=== PATIENT | female | born 1990 | race Caucasian/White ===

== ENCOUNTER 2018-06-30 14:28 | Inpatient (IN) | payer OTHER ==
[2018-06-30 16:01] VITALS: BMI 33.6
--- NOTE | 2018-06-30 17:31 | HP ---
COWS - Scale Resting Pulse: 0= [place] 80 or Below Sweatin= Chills/Flushing Restless Observation: 5= Unable to Sit Still Pupil Size: 0= Normal to Room Light Bone or Joint Aches: 4=Acute Joint/Muscle Pain Runny Nose/ Eye Tearin= Nasal Congestion GI Upset > 30mins: 2= Nausea/Diarrhea Tremor Observation: 2= Slight Tremor Visible Yawning Observation: 0= None Anxiety or Irritability: 2=Irritable/Anxious Goose Flesh Skin: 0=Smooth Skin COWS Score: 17 CIWA Score - Admission Criteria OASAS Guidelines: Admission for Medically Managed Detox: Requires at least one of the followin. CIWA greater than 12 2. Seizures within the past 24 hours 3. Delirium tremens within the past 24 hours 4. Hallucinations within the past 24 hours 5. Acute intervention needed for co occurring medical disorder 6. Acute intervention needed for co occurring psychiatric disorder 7. Severe withdrawal that cannot be handled at a lower level of care (continued vomiting, continued diarrhea, abnormal vital signs) requiring intravenous medication and/or fluids 8. Admission ROS [facility] Chief Complaint: c/o withdrawal sx's. seeking detox from heroin Allergies/Adverse Reactions: Allergies Allergy/AdvReac Type Severity Reaction Status Date / Time No Known Allergies Allergy Verified 06/30/18 17:31 History of Present Illness: 27 Y.O. FEMALE WITH HX/O POLYSUBSTANCE ABUSE HERE FOR HEROIN DETOX. SHE WAS REFERRED BY A FRIEND. THIS IS HER FIRST VISIT HERE. C/O WITHDRAWAL SX'S. COWS 17. REPORTS HX/O DETOX AND RESIDENTIAL TXMENT. LAST BEING AT [facility] IN 2011. REPORTS LONGEST CLEAN TIME 3 YEARS. REPORT MOST RECENT CLEAN TIME 6 ONTHS THIS PAST YEAR. REPORTS HX/O DRUG OVERDOSE A "FEW TIMES". REPORTS HX/O SUICIDAL ATTEMPTS AND IDEATIONS, PRESENTLY DENIES. HX/O SEIZURES WHEN WITHDRAWING FROM BENZO'S WHICH SHE DENIES USE NOW. INTERMITTENT AVH ALSO REPORTED BUT PRESENTLY DENIES. SHE REPORTS SHE IS HOMELESS/. PMHX- DENIES PSYCH- DENIES MEDS- DENIES Exam Limitations: No Limitations - Ebola screening Have you traveled outside of the country in the last 21 days: No Have you had contact with anyone from an Ebola affected area: No Have you been sick,other than usual withdrawal symptoms: No Do you have a fever: No - Review of Systems Constitutional: Chills, Loss of Appetite, Malaise, Night Sweats, Changes in sleep EENT: reports: Nose Congestion, Other (DRY ITCHY EYES) Respiratory: reports: No Symptoms reported Cardiac: reports: No Symptoms Reported GI: reports: Nausea, Poor Appetite, Poor Fluid Intake : reports: No Symptoms Reported Musculoskeletal: reports: Back Pain Integumentary: reports: No Symptoms Reported Neuro: reports: Seizure (WHEN WITHDRAWAING FROM BENZO'S) Endocrine: reports: No Symptoms Reported Hematology: reports: No Symptoms Reported Psychiatric: reports: Depressed Other Systems: Reviewed and Negative Patient History - Patient Medical History Hx Anemia: Yes Hx Asthma: No Hx Chronic Obstructive Pulmonary Disease (COPD): No Hx Cancer: No Hx Cardiac Disorders: No Hx Congestive Heart Failure: No Hx Hypertension: No Hx Hypercholesterolemia: No Hx Pacemaker: No HX Cerebrovascular Accident: No Hx Seizures: Yes Hx Dementia: No Hx Diabetes: No Hx Gastrointestinal Disorders: No Hx Liver Disease: No Hx Genitourinary Disorders: No Hx Sexually Transmitted Disorders: No Hx Renal Disease (ESRD): No Hx Thyroid Disease: No Hx Human Immunodeficiency Virus (HIV): No Hx Hepatitis C: No Hx Depression: Yes Hx Suicide Attempt: Yes (summer/ THROW SELF INFORNT OF A ) Hx Bipolar Disorder: No Hx Schizophrenia: No - Patient Surgical History Past Surgical History: Yes Hx Section: Yes Anesthesia Reaction: No - PPD History Previous Implant?: Yes Documented Results: Negative w/o proof Implanted On Prior R Admission?: No PPD to be Administered?: Yes - Reproductive History Patient is a Female of Child Bearing Age (11 -55 yrs old): Yes Last Menstrual Period: 05/13/18 LMP comment: IRREG MENSES Patient : No ([facility] [place] - Smoking Cessation Smoking history: Current every day smoker Have you smoked in the past 12 months: Yes Aproximately how many cigarettes per day: 20 Cigars Per Day: 0 Hx Chewing Tobacco Use: No Initiated information on smoking cessation: Yes 'Breaking Loose' booklet given: 06/30/18 - Substance & Tx. History Hx Alcohol Use: No Hx Substance Use: Yes Substance Use Type: Cocaine, Heroin, Marijuana Hx Substance Use Treatment: Yes ([facility]) - Substances Abused HEROIN Route: Inhalation Frequency: Daily Amount used: 10 BAGS Age of first use: 24 Date of Last Use: 06/30/18 THC Route: Smoking Frequency: Daily Amount used: 5 BLUNTS Age of first use: 19 Date of Last Use: 06/30/18 COCAINE Route: Inhalation Frequency: Daily Amount used: $40 Age of first use: 21 Date of Last Use: 06/30/18 Family Disease History - Family Disease History Family Disease History: Other: Father (schizophrenia) Admission Physical Exam S - Vital Signs Vital Signs: Vital Signs - 24 hr 06/30/18 15:58 Temperature 96 F L Pulse Rate 64 Respiratory 18 Rate Blood Pressure 123/64 - Physical General Appearance: Yes: Appropriately Dressed, Mild Distress, Tremorous (felt) , Anxious HEENTM: Yes: EOMI, Hearing grossly Normal, Normocephalic, Normal Voice, JENNIFER, Pharynx Normal, Nasal Congestion, Other (nose pericing) Respiratory: Yes: Chest Non-Tender, Lungs Clear, Normal Breath Sounds, No Respiratory Distress, No Accessory Muscle Use Neck: Yes: No masses,lesions,Nodules, Supple, Trachea in good position Breast: Yes: Breast Exam Deferred Cardiology: Yes: Regular Rhythm, Regular Rate, S1, S2 Abdominal: Yes: Normal Bowel Sounds, Non Tender, Soft, Protuberent, Other ( peircing) Genitourinary: Yes: Within Normal Limits (no c/o) Back: Yes: Normal Inspection Musculoskeletal: Yes: full range of Motion, Gait Steady Extremities: Yes: Normal Capillary Refill, Normal Range of Motion, Non-Tender, Tremors (felt) Neurological: Yes: Fully Oriented, Alert, Motor Strength 5/5, Depressed Affect Integumentary: Yes: Dry, Warm Lymphatic: Yes: Within Normal Limits - Diagnostic (1) Opioid dependence with withdrawal Current Visit: Yes Status: Acute (2) Cannabis dependence, uncomplicated Current Visit: Yes Status: Chronic (3) Cocaine abuse, uncomplicated Current Visit: Yes Status: Chronic (4) Nicotine dependence Current Visit: Yes Status: Chronic Qualifiers: Nicotine product type: cigarettes Substance use status: uncomplicated Qualified Code(s): F17.210 - Nicotine dependence, cigarettes, uncomplicated (5) Drug withdrawal seizure Current Visit: Yes Status: Suspected Qualifiers: Complication of substance-induced condition: with unspecified complication Qualified Code(s): F19.239 - Other psychoactive substance dependence with withdrawal, unspecified; R56.9 - Unspecified convulsions (6) Depressed affect Current Visit: Yes Status: Acute (7) At risk for dehydration due to poor fluid intake Current Visit: Yes Status: Acute (8) Substance induced mood disorder Current Visit: Yes Status: Suspected (9) Substance-induced sleep disorder Current Visit: Yes Status: Suspected Cleared for Admission [facility] - Detox or Rehab [facility] Level of Care: Medically Managed Detox Regimen/Protocol: Methadone Claeared for Rehab Admission: No S Breath Alcohol Content Breath Alcohol Content: 0 Urine Pregancy Test - Result Urine Test Results: Negative- NO Line Present Urine Drug Screen - Results Drug Screen Negative: No Urine Drug Screen Results: THC-Marijuana, ADDIE-Cocaine, OPI-Opiates, FEN-Fentanyl
[2018-06-30] MEDS ORDERED: guaiFENesin/D-METHORPHAN HB 10 ML UNIT-DOSE CUPS PO PRN (17:45)
[2018-06-30] MEDS ORDERED: MENTHOL/PHENOL 1 EACH UD MM PRN (17:45)
[2018-06-30] MEDS ORDERED: P-EPHED 60MG/TRIPROLIDI 2.5MG TABLET PO PRN (17:45)
[2018-06-30] MEDS ORDERED: MAGNESIUM HYDROX 2400MG/30ML ORAL SUSPENSION 30 ML CUP PO PRN (17:45)
[2018-06-30] MEDS ORDERED: MAGNESIUM CITRATE 300 ML BOTTLE PO PRN (17:45)
[2018-06-30] MEDS ORDERED: LOPERAMIDE HCL 2 MG CAPSULE PO PRN (17:45)
[2018-06-30] MEDS ORDERED: NICOTINE POLACRILEX 2 MG GUM BC PRN (17:45)
[2018-06-30] MEDS ORDERED: MAG HYDROX/AL HYDROX/SIMETH 30 ML UNIT-DOSE CUP PO PRN (17:45)
[2018-06-30] MEDS ORDERED: METHADONE HCL 10 MG TABLET (FOR DETOX USE ONLY) PO ONE ×2 (18:30→23:00)
[2018-06-30] MEDS: diazePAM 5 MG TABLET PO PRN (19:18)
[2018-06-30] MEDS: IBUPROFEN 400 MG TABLET (FP) PO PRN (22:31)
[2018-06-30] MEDS: THIAMINE HCL 100 MG TABLET (FP) PO SCH (22:31)
[2018-06-30] MEDS: MELATONIN 5 MG TABLETS PO PRN (22:32)
[2018-06-30 23:14] LABS: URINE APPEARANCE CLOUDY; URINE BILIRUBIN NEGATIVE (<2.0 mg/dL); URINE COLOR YELLOW; URINE GLUCOSE (UA) NEGATIVE (NEGATIVE); URINE KETONE NEGATIVE (NEGATIVE); URINE LEUK ESTERASE 1+ (NEGATIVE); URINE NITRITE NEGATIVE (NEGATIVE); URINE PROTEIN NEGATIVE (NEGATIVE); URINE UROBILINOGEN NEGATIVE mg/dL (0.2-1.0)
[2018-06-30 23:31] LABS: EPI CELLS MODERATE /HPF (FEW); URINE BACTERIA RARE /hpf (NONE SEEN); URINE HYALINE CAST 3 /lpf; URINE MUCUS FEW
[2018-07-01] MEDS: diazePAM 5 MG TABLET PO PRN ×4 (02:49→22:15)
[2018-07-01] MEDS ORDERED: METHADONE HCL 10 MG TABLET (FOR DETOX USE ONLY) PO ONE (10:00)
[2018-07-01] MEDS: PRENATAL VITAMINS W/ FOLIC ACID TABLET (FP) PO SCH (10:24)
[2018-07-01] MEDS: NICOTINE 21 MG/24 HOURS TOPICAL PATCH TD SCH (10:25)
[2018-07-01 10:50] LABS: HEMATOCRIT 38.2 % (32.4-45.2); HEMOGLOBIN 12.3 GM/dL (10.7-15.3); MCH 28.1 pg (25.7-33.7); MCHC 32.2 g/dl (32.0-36.0); MEAN CELL VOLUME 87.2 fl (80-96); MEAN PLT VOLUME 8.3 fl (7.5-11.1); PLATELET COUNT 274 K/MM3 (134-434); RBC 4.38 M/mm3 (3.60-5.2); RDW 13.7 % (11.6-15.6)
[2018-07-01 11:07] LABS: ALBUMIN 3.1 g/dl (3.4-5.0); ALK PHOS 54 U/L (45-117); ANION GAP 7 MMOL/L (8-16); BILIRUBIN,TOTAL 0.3 mg/dL (0.2-1); BLOOD UREA NITROGEN 14 mg/dL (7-18); CALCIUM 8.3 mg/dL (8.5-10.1); CHLORIDE 105 mmol/L (98-107); CO2 26 mmol/L (21-32); CREATININE 0.6 mg/dL (0.55-1.3); GLUCOSE,RANDOM 74 mg/dL (74-106); POTASSIUM 4.5 mmol/L (3.5-5.1); SGOT/AST 14 U/L (15-37); SGPT/ALT 18 U/L (13-61); SODIUM 138 mmol/L (136-145); TOT PROT 5.9 g/dl (6.4-8.2)
--- NOTE | 2018-07-01 15:07 | PN ---
BHS COWS - Scale Resting Pulse: 1= [place] 81-100 Sweatin=Flushed/Facial Moisture Restless Observation: 1= Difficult to Sit Still Pupil Size: 0= Normal to Room Light Bone or Joint Aches: 1= Mild Discomfort Runny Nose/ Eye Tearin= Nasal Congestion GI Upset > 30mins: 1= Stomach Cramp Tremor Observation of Outstretched Hands: 2= Slight Tremor Visible Yawning Observation: 0= None Anxiety or Irritability: 2=Irritable/Anxious Goose Flesh Skin: 0=Smooth Skin COWS Score: 11 S Progress Note (SOAP) Subjective: abd cramp poor appetite Objective: 07/01/18 15:04 A & O x 3 gait steady Vital Signs Temperature 98.1 F 07/01/18 14:43 Pulse Rate 74 07/01/18 14:43 Respiratory Rate 18 07/01/18 14:43 Blood Pressure 126/69 07/01/18 14:43 O2 Sat by Pulse Oximetry (%) Laboratory Last Values WBC 7.0 K/mm3 (4.0-10.0) 07/01/18 07:50 RBC 4.38 M/mm3 (3.60-5.2) 07/01/18 07:50 Hgb 12.3 GM/dL (10.7-15.3) 07/01/18 07:50 Hct 38.2 % (32.4-45.2) 07/01/18 07:50 MCV 87.2 fl (80-96) 07/01/18 07:50 MCH 28.1 pg (25.7-33.7) 07/01/18 07:50 MCHC 32.2 g/dl (32.0-36.0) 07/01/18 07:50 RDW 13.7 % (11.6-15.6) 07/01/18 07:50 Plt Count 274 K/MM3 (134-434) 07/01/18 07:50 MPV 8.3 fl (7.5-11.1) 07/01/18 07:50 Sodium 138 mmol/L (136-145) 07/01/18 07:50 Potassium 4.5 mmol/L (3.5-5.1) 07/01/18 07:50 Chloride 105 mmol/L (98-107) 12/01/18 07:50 Carbon Dioxide 26 mmol/L (21-32) 07/01/18 07:50 Anion Gap 7 MMOL/L (8-16) L 07/01/18 07:50 BUN 14 mg/dL (7-18) 07/01/18 07:50 Creatinine 0.6 mg/dL (0.55-1.3) 07/01/18 07:50 Creat Clearance w eGFR > 60 (>60) 07/01/18 07:50 Random Glucose 74 mg/dL (74-106) 07/01/18 07:50 Calcium 8.3 mg/dL (8.5-10.1) L 07/01/18 07:50 Total Bilirubin 0.3 mg/dL (0.2-1) 07/01/18 07:50 AST 14 U/L (15-37) L 07/01/18 07:50 ALT 18 U/L (13-61) 07/01/18 07:50 Alkaline Phosphatase 54 U/L (45-117) 07/01/18 07:50 Total Protein 5.9 g/dl (6.4-8.2) L 07/01/18 07:50 Albumin 3.1 g/dl (3.4-5.0) L 07/01/18 07:50 Urine Color Yellow 06/30/18 23:00 Urine Appearance Cloudy 06/30/18 23:00 Urine pH 5.0 (5.0-8.0) 06/30/18 23:00 Ur Specific [place] 1.019 (1.010-1.035) 06/30/18 23:00 Urine Protein Negative (NEGATIVE) 06/30/18 23:00 Urine Glucose (UA) Negative (NEGATIVE) 06/30/18 23:00 Urine Ketones Negative (NEGATIVE) 06/30/18 23:00 Urine Blood Negative (NEGATIVE) 06/30/18 23:00 Urine Nitrite Negative (NEGATIVE) 06/30/18 23:00 Urine Bilirubin Negative (<2.0 mg/dL) 06/30/18 23:00 Urine Urobilinogen Negative mg/dL (0.2-1.0) 06/30/18 23:00 Ur Leukocyte Esterase 1+ (NEGATIVE) H 06/30/18 23:00 Urine WBC (Auto) 10 /hpf (3-5) 06/30/18 23:00 Urine RBC (Auto) 6 /hpf (0-3) 06/30/18 23:00 Ur Epithelial Cells Moderate /HPF (FEW) 06/30/18 23:00 Urine Bacteria Rare /hpf (NONE SEEN) 06/30/18 23:00 Hyaline Casts 3 /lpf 06/30/18 23:00 Urine Mucus Few 06/30/18 23:00 RPR Titer Nonreactive (NONREACTIVE) 07/01/18 07:50 HIV 1&2 Antibody Screen Negative 07/01/18 07:50 HIV P24 Antigen Negative 07/01/18 07:50 noted Assessment: 07/01/18 15:06 withdrawal sx abnormal urinalysis Plan: continue detox increase hydration repeat ua 07/03
[2018-07-01] MEDS: IBUPROFEN 400 MG TABLET (FP) PO PRN (17:07)
--- NOTE | 2018-07-01 17:33 | EKG ---
Test Reason : Blood Pressure : / mmHG Vent. Rate : 072 BPM Atrial Rate : 072 BPM P-R Int : 134 ms QRS Dur : 088 ms QT Int : 398 ms P-R-T Axes : 046 055 025 degrees QTc Int : 435 ms NORMAL SINUS RHYTHM NORMAL ECG NO PREVIOUS ECGS AVAILABLE Confirmed by MD RODNEY, FLOYD ([id number]) on 07/01/2018 5:32:24 PM Referred By: Confirmed By:FLOYD STEVENS MD
--- NOTE | 2018-07-01 17:46 | CONSULT ---
[facility] Psychiatric Consult - Data Date of interview: 07/01/18 Admission source: [facility] Identifying data: First admission to [facility] for this 27 y/o female seeking detoxification treatment on for heroin, cocaine and cannabis dependence. Patient is single, a mother of two, homeless, unemployed and supported on Welfare. Substance Abuse History: Confirmed by the patient in this session. Details in current [facility] report : Smoking history: Current every day smoker. Have you smoked in the past 12 months: Yes. Aproximately how many cigarettes per day: 20. Cigars Per Day: 0. Hx Chewing Tobacco Use: No. Initiated information on smoking cessation: Yes. 'Breaking Loose' booklet given: 06/30/18. - Substance & Tx. History. Hx Alcohol Use: No. Hx Substance Use: Yes. Substance Use Type : Cocaine, Heroin, Marijuana. Hx Substance Use Treatment: Yes ([facility]). - Substances Abused. HEROIN. Route: Inhalation. Frequency: Daily. Amount used: 10 BAGS. Age of first use: 24. Date of Last Use: 06/30/18. THC. Route: Smoking. Frequency: Daily. Amount used: 5 BLUNTS. Age of first use: 19. Date of Last Use: 06/30/18. COCAINE. Route: Inhalation. Frequency: Daily. Amount used: $40. Age of first use: 21. Date of Last Use: 06/30/18 Medical History: Patient endorses good general health. Noted report of a history of anemia and withdrawal-related seizures. Psychiatric History: Patient denies hstory of psychiatric hospitalizations or OPD care (in spite of report of a suicide attempt, in 2018, via jumping in front of a moving car). Physical/Sexual Abuse/Trauma History: Patient denies. Additional Comment: Urine Drug Screen Results: THC-Marijuana, ADDIE-Cocaine, OPI- Opiates, FEN-Fentanyl. Noted. Mental Status Exam - Mental Status Exam Alert and Oriented to: Time, Place, Person Cognitive Function: Good Patient Appearance: Well Groomed Mood: Withdrawn, Hopeful Affect: Appropriate, Normal Range Patient Behavior: Fatigued, Cooperative Speech Pattern: Clear, Appropriate Voice Loudness: Normal Thought Process: Goal Oriented Thought Disorder: Not Present Hallucinations: Denies Suicidal Ideation: Denies Homicidal Ideation: Denies Insight/Judgement: Poor Sleep: Fair Appetite: Good Muscle strength/Tone: Normal Gait/Station: Normal Psychiatric Findings - Problem List ([place] 1, 2,3) (1) Opioid dependence with withdrawal Current Visit: Yes Status: Chronic (2) Cannabis dependence, uncomplicated Current Visit: Yes Status: Chronic (3) Cocaine abuse, uncomplicated Current Visit: Yes Status: Chronic (4) Nicotine dependence Current Visit: Yes Status: Chronic Qualifiers: Nicotine product type: cigarettes Substance use status: uncomplicated Qualified Code(s): F17.210 - Nicotine dependence, cigarettes, uncomplicated - Initial Treatment Plan Initial Treatment Plan: Psychoeducation. Detoxification in progress. Support and encouragement. Observation.
[2018-07-01] MEDS: THIAMINE HCL 100 MG TABLET (FP) PO SCH (22:15)
[2018-07-01] MEDS: MELATONIN 5 MG TABLETS PO PRN (22:16)
[2018-07-02] MEDS: diazePAM 5 MG TABLET PO PRN ×3 (05:58→22:16)
[2018-07-02] MEDS ORDERED: METHADONE HCL 5 MG TABLET (FOR DETOX USE ONLY) PO ONE (10:00)
[2018-07-02] MEDS: NICOTINE 21 MG/24 HOURS TOPICAL PATCH TD SCH (10:44)
[2018-07-02] MEDS: PRENATAL VITAMINS W/ FOLIC ACID TABLET (FP) PO SCH (10:44)
--- NOTE | 2018-07-02 10:47 | PN ---
BHS COWS - Scale Resting Pulse: 0= [place] 80 or Below Sweatin= Chills/Flushing Restless Observation: 1= Difficult to Sit Still Pupil Size: 1= Pupils >than Normal Bone or Joint Aches: 1= Mild Discomfort Runny Nose/ Eye Tearin= Nasal Congestion GI Upset > 30mins: 1= Stomach Cramp Tremor Observation of Outstretched Hands: 1= Tremor [place], Not Seen Yawning Observation: 2= >3x During Session Anxiety or Irritability: 0= None Goose Flesh Skin: 0=Smooth Skin COWS Score: 9 BHS Progress Note (SOAP) Subjective: body aches joints pain less tremor and anxiety sweat muscle cramping Objective: 07/02/18 10:48 Vital Signs Temperature 98.4 F 07/02/18 10:00 Pulse Rate 71 07/02/18 10:00 Respiratory Rate 16 07/02/18 10:00 Blood Pressure 125/76 07/02/18 10:00 O2 Sat by Pulse Oximetry (%) Laboratory Last Values WBC 7.0 K/mm3 (4.0-10.0) 07/01/18 07:50 RBC 4.38 M/mm3 (3.60-5.2) 07/01/18 07:50 Hgb 12.3 GM/dL (10.7-15.3) 07/01/18 07:50 Hct 38.2 % (32.4-45.2) 07/01/18 07:50 MCV 87.2 fl (80-96) 07/01/18 07:50 MCH 28.1 pg (25.7-33.7) 07/01/18 07:50 MCHC 32.2 g/dl (32.0-36.0) 07/01/18 07:50 RDW 13.7 % (11.6-15.6) 07/01/18 07:50 Plt Count 274 K/MM3 (134-434) 07/01/18 07:50 MPV 8.3 fl (7.5-11.1) 07/01/18 07:50 Sodium 138 mmol/L (136-145) 07/01/18 07:50 Potassium 4.5 mmol/L (3.5-5.1) 07/01/18 07:50 Chloride 105 mmol/L (98-107) 07/01/18 07:50 Carbon Dioxide 26 mmol/L (21-32) 07/01/18 07:50 Anion Gap 7 MMOL/L (8-16) L 07/01/18 07:50 BUN 14 mg/dL (7-18) 07/01/18 07:50 Creatinine 0.6 mg/dL (0.55-1.3) 07/01/18 07:50 Creat Clearance w eGFR > 60 (>60) 07/01/18 07:50 Random Glucose 74 mg/dL (74-106) 07/01/18 07:50 Calcium 8.3 mg/dL (8.5-10.1) L 07/01/18 07:50 Total Bilirubin 0.3 mg/dL (0.2-1) 07/01/18 07:50 AST 14 U/L (15-37) L 07/01/18 07:50 ALT 18 U/L (13-61) 07/01/18 07:50 Alkaline Phosphatase 54 U/L (45-117) 07/01/18 07:50 Total Protein 5.9 g/dl (6.4-8.2) L 07/01/18 07:50 Albumin 3.1 g/dl (3.4-5.0) L 07/01/18 07:50 Urine Color Yellow 06/30/18 23:00 Urine Appearance Cloudy 06/30/18 23:00 Urine pH 5.0 (5.0-8.0) 06/30/18 23:00 Ur Specific [place] 1.019 (1.010-1.035) 06/30/18 23:00 Urine Protein Negative (NEGATIVE) 06/30/18 23:00 Urine Glucose (UA) Negative (NEGATIVE) 06/30/18 23:00 Urine Ketones Negative (NEGATIVE) 06/30/18 23:00 Urine Blood Negative (NEGATIVE) 06/30/18 23:00 Urine Nitrite Negative (NEGATIVE) 06/30/18 23:00 Urine Bilirubin Negative (<2.0 mg/dL) 06/30/18 23:00 Urine Urobilinogen Negative mg/dL (0.2-1.0) 06/30/18 23:00 Ur Leukocyte Esterase 1+ (NEGATIVE) H 06/30/18 23:00 Urine WBC (Auto) 10 /hpf (3-5) 06/30/18 23:00 Urine RBC (Auto) 6 /hpf (0-3) 06/30/18 23:00 Ur Epithelial Cells Moderate /HPF (FEW) 06/30/18 23:00 Urine Bacteria Rare /hpf (NONE SEEN) 06/30/18 23:00 Hyaline Casts 3 /lpf 06/30/18 23:00 Urine Mucus Few 06/30/18 23:00 RPR Titer Nonreactive (NONREACTIVE) 07/01/18 07:50 HIV 1&2 Antibody Screen Negative 07/01/18 07:50 HIV P24 Antigen Negative 07/01/18 07:50 lab noted 07/02/18 10:53 Assessment: 07/02/18 10:54 withdrawal sx Plan: continue detox
[2018-07-02] MEDS ORDERED: BACLOFEN 10 MG TABLET (FP) PO ONE (11:45)
[2018-07-02] MEDS ORDERED: hydrOXYzine PAMOATE 25 MG CAPSULE (FP) PO ONE (17:53)
--- NOTE | 2018-07-02 17:56 | PN ---
BHS Progress Note Note: pt agitated, requesting the methadone that she had refused in the a.m. Pt had valium about 2+ hrs ago Vistaril 25mg one time dose ordered for anxiety.
[2018-07-02] MEDS: THIAMINE HCL 100 MG TABLET (FP) PO SCH (22:14)
[2018-07-02] MEDS: MELATONIN 5 MG TABLETS PO PRN (22:14)
[2018-07-02] MEDS: ACETAMINOPHEN 325 MG TABLET (FP) PO PRN (22:15)
[2018-07-03] MEDS: diazePAM 5 MG TABLET PO PRN ×3 (05:44→17:10)
[2018-07-03] MEDS ORDERED: METHADONE HCL 5 MG TABLET (FOR DETOX USE ONLY) PO ONE (10:00)
[2018-07-03] MEDS: PRENATAL VITAMINS W/ FOLIC ACID TABLET (FP) PO SCH (10:14)
[2018-07-03] MEDS: NICOTINE 21 MG/24 HOURS TOPICAL PATCH TD SCH (10:15)
--- NOTE | 2018-07-03 11:06 | PN ---
BHS Progress Note (SOAP) Subjective: pt wants to leave tomorrow instead of Tuesday pt states feeling better very little sweats Objective: 07/03/18 11:05 Vital Signs Temperature 98.1 F 07/03/18 09:15 Pulse Rate 76 07/03/18 09:15 Respiratory Rate 18 07/03/18 09:15 Blood Pressure 98/51 L 07/03/18 09:15 O2 Sat by Pulse Oximetry (%) Laboratory Tests 06/30/18 07/01/18 07/01/18 23:00 07:50 07:50 WBC 7.0 RBC 4.38 Hgb 12.3 Hct 38.2 MCV 87.2 MCH 28.1 MCHC 32.2 RDW 13.7 Plt Count 274 MPV 8.3 Sodium 138 Potassium 4.5 Chloride 105 Carbon Dioxide 26 Anion Gap 7 L BUN 14 Creatinine 0.6 Creat Clearance w eGFR > 60 Random Glucose 74 Calcium 8.3 L Total Bilirubin 0.3 AST 14 L ALT 18 Alkaline Phosphatase 54 Total Protein 5.9 L Albumin 3.1 L Urine Color Yellow Urine Appearance Cloudy Urine pH 5.0 Ur Specific [place] 1.019 Urine Protein Negative Urine Glucose (UA) Negative Urine Ketones Negative Urine Blood Negative Urine Nitrite Negative Urine Bilirubin Negative Urine Urobilinogen Negative Ur Leukocyte Esterase 1+ H Urine WBC (Auto) 10 Urine RBC (Auto) 6 Ur Epithelial Cells Moderate Urine Bacteria Rare Hyaline Casts 3 Urine Mucus Few RPR Titer HIV 1&2 Antibody Screen HIV P24 Antigen 07/01/18 07/01/18 07:50 07:50 WBC RBC Hgb Hct MCV MCH MCHC RDW Plt Count MPV Sodium Potassium Chloride Carbon Dioxide Anion Gap BUN Creatinine Creat Clearance w eGFR Random Glucose Calcium Total Bilirubin AST ALT Alkaline Phosphatase Total Protein Albumin Urine Color Urine Appearance Urine pH Ur Specific [place] Urine Protein Urine Glucose (UA) Urine Ketones Urine Blood Urine Nitrite Urine Bilirubin Urine Urobilinogen Ur Leukocyte Esterase Urine WBC (Auto) Urine RBC (Auto) Ur Epithelial Cells Urine Bacteria Hyaline Casts Urine Mucus RPR Titer Nonreactive HIV 1&2 Antibody Screen Negative HIV P24 Antigen Negative aaox3 ambulating no acute distress Assessment: 07/03/18 11:05 mild withdrawal sx Plan: continue detox increase fluids d/c in am
[2018-07-03] MEDS: MELATONIN 5 MG TABLETS PO PRN (22:26)
[2018-07-03] MEDS: THIAMINE HCL 100 MG TABLET (FP) PO SCH (22:26)
[2018-07-03 23:03] VITALS: BP 98/70; PULSE 97; TEMP 98.1
[2018-07-03] MEDS: ACETAMINOPHEN 325 MG TABLET (FP) PO PRN (23:05)
[2018-07-04] MEDS ORDERED: METHADONE HCL 10 MG TABLET (FOR DETOX USE ONLY) PO ONE ×2 (06:00→10:00)
--- NOTE | 2018-07-04 09:55 | DS ---
[facility] Detox Discharge Summary Admission Date: 06/30/18 Discharge Date: 07/04/18 - History Present History: Alcohol Dependence, Cannabis Dependence, Opioid Dependence - Physical Exam Results Vital Signs: Vital Signs Temperature 98.1 F 07/03/18 23:03 Pulse Rate 97 H 07/03/18 23:03 Respiratory Rate 18 07/04/18 03:30 Blood Pressure 98/70 07/03/18 23:03 O2 Sat by Pulse Oximetry (%) - Treatment Hospital Course: Detox Protocol Followed, Detoxed Safely, Responded well, Discharged Condition Good, Rehab Referral Accepted - Medication Discharge Medications: Ambulatory Orders NK [No Known Home Medication] 06/30/18 - AMA Did Patient Leave Against Medical Advice: No (going home and go to court)
[2018-07-04 14:44] LABS: URINE APPEARANCE SLCLOUDY; URINE BILIRUBIN NEGATIVE (<2.0 mg/dL); URINE COLOR YELLOW; URINE GLUCOSE (UA) NEGATIVE (NEGATIVE); URINE KETONE NEGATIVE (NEGATIVE); URINE LEUK ESTERASE NEGATIVE (NEGATIVE); URINE NITRITE NEGATIVE (NEGATIVE); URINE PROTEIN NEGATIVE (NEGATIVE); URINE UROBILINOGEN NEGATIVE mg/dL (0.2-1.0)
[2018-07-04 14:50] LABS: EPI CELLS RARE /HPF (FEW); URINE BACTERIA RARE /hpf (NONE SEEN); URINE MUCUS RARE
[2018-07-05] MEDS ORDERED: METHADONE HCL 5 MG TABLET (FOR DETOX USE ONLY) PO ONE (06:00)
== END 2018-07-04 06:55 | disposition home or self-care (01) | DRG 773 ==
LOC: YASAS 14:28 → EDSEX 14:28 → Y6N 18:16
PROC: HZ2ZZZZ Detoxification Services for Substance Abuse Treatment (ICD-10-PCS; principal; 2018-06-30)
DX: F11.23 Opioid dependence with withdrawal (principal); F10.230 Alcohol dependence with withdrawal, uncomplicated; F14.10 Cocaine abuse, uncomplicated; F12.20 Cannabis dependence, uncomplicated; F17.210 Nicotine dependence, cigarettes, uncomplicated; F19.24 Other psychoactive substance dependence with psychoactive substance-induced mood disorder; F19.282 Other psychoactive substance dependence with psychoactive substance-induced sleep disorder; R45.89 Other symptoms and signs involving emotional state; R79.89 Other specified abnormal findings of blood chemistry; R82.0 Chyluria; Z86.69 Personal history of other diseases of the nervous system and sense organs; Z86.2 Personal history of diseases of the blood and blood-forming organs and certain disorders involving the immune mechanism; Z91.5 Personal history of self-harm
CPT/HCPCS: 36415; 80053; 81003; 81015; 85027; 86593; 87389; 93005; 93010